=== PATIENT | female | born 1940 | race Caucasian/White ===

== ENCOUNTER 2019-08-12 19:04 | Emergency (ER) | payer MEDICARE ==
[~2019-08-12] VITALS: Ht 165.1 cm; Wt 63.6 kg
[~2019-08-12 19:04] MED LIST: ACET500T68 PO; ATOR10TA60; OMEP40CA45; TRAM50TA
--- NOTE | 2019-08-12 19:26 | PHYS DOC ---
Past Medical History Past Medical History: High Cholesterol, Other Additional Past Medical Histor: CHRONIC RIGHT FOOT PAIN Past Surgical History: Appendectomy, Hysterectomy Smoking Status: Former Smoker Alcohol Use: None Drug Use: None Adult General Chief Complaint Chief Complaint: MECHANICAL FALL HPI HPI Patient is a 78 year old female with history of dyslipidemia and chronic right foot pain resident of [facility] who presents via EMS with complaint of a fall. Patient complaining of frequent fall because of balance problem and states she had a fall today and injured bilateral knees with more pain in left side. Patient denies loss of consciousness and other injuries and rated her pain 5/10. Patient states she usually uses a cane. Review of Systems Review of Systems Constitutional: Denies fever or chills [] Eyes: Denies change in visual acuity, redness, or eye pain [] HENT: Denies nasal congestion or sore throat [] Respiratory: Denies cough or shortness of breath [] Cardiovascular: No additional information not addressed in HPI [] GI: Denies abdominal pain, nausea, vomiting, bloody stools or diarrhea [] : Denies dysuria or hematuria [] Musculoskeletal: Denies back pain, reports joint pain [] Integument: Denies rash or skin lesions [] Neurologic: Denies headache, focal weakness or sensory changes [] Endocrine: Denies polyuria or polydipsia [] All other systems were reviewed and found to be within normal limits, except as documented in this note. Allergies Allergies Allergies Coded Allergies Type Severity Reaction Last Updated Verified Penicillins Allergy Intermediate 10/06/14 Yes Physical Exam Physical Exam Constitutional: Well developed, well nourished, mild distress, non-toxic appearance. [] HENT: Normocephalic, atraumatic. Eyes: PERRLA, EOMI, conjunctiva normal, no discharge. [] Neck: Normal range of motion, no tenderness, supple, no stridor. [] Cardiovascular:Heart rate regular rhythm, no murmur [] Lungs & Thorax: Bilateral breath sounds clear to auscultation [] Abdomen: Bowel sounds normal, soft, no tenderness, no masses, no pulsatile masses. [] Skin: Warm, dry, no erythema, no rash. [] Back: No tenderness, no CVA tenderness. [] Extremities: Left knee feet edema and effusion and area of contusion with painful range of motion, no neurovascular deficit, right knee with several area of contusion with normal range of motion. Neurologic: Alert and oriented X 3, no focal deficits noted. [] Psychologic: Affect normal, judgement normal, mood normal. [] Current Patient Data Vital Signs Vital Signs Date Time Temp Pulse Resp B/P (MAP) Pulse Ox O2 Delivery O2 Flow Rate FiO2 08/12/19 19:04 98.9 78 20 130/58 (82) 100 Room Air 98.9 EKG EKG [] Radiology/Procedures Radiology/Procedures [address] [address] IMAGING REPORT Signed PATIENT: LILIBETH SAUCEDO TACCOUNT: [id number] : 1940 LOCATION: ER AGE: 78 SEX: F EXAM STATUS: PRE ER ORD. PHYSICIAN: OBED BANDA MD REASON: falls PROCEDURE: PELVIS PELVIS DATE: 08/12/2019 7:20 PM INDICATION: Pain, fall COMPARISON: None. FINDINGS: Bones: There is no evidence of acute fracture or dislocation. Right total hip arthroplasty. Joints: The joint spaces are normal. Miscellaneous: None. IMPRESSION: No evidence of acute fracture. Electronically signed by: Caron Gregg MD (08/12/2019 8:29 PM) [id number] DICTATED and SIGNED BY: CARON GREGG MD DATE: 08/12/192028 [address] [address] IMAGING REPORT Signed PATIENT: LILIBETH SAUCEDO TACCOUNT: [id number] : 1940 LOCATION: ER AGE: 78 SEX: F EXAM STATUS: PRE ER ORD. PHYSICIAN: OBED BANDA MD REASON: falls PROCEDURE: KNEE BILAT 4V EXAM: AP, oblique, lateral and tangential patellar views of both knees DATE: 08/12/2019 7:19 PM INDICATION: Fall, bilateral knee pain COMPARISON: No Prior FINDINGS: Diffusely decreased bone mineral density limits evaluation for acute fracture. Within these constraints, no acute fracture or dislocation. Bilateral knee joint osteoarthritis, left greater than right with severe lateral compartment joint space narrowing left knee and mild lateral subluxation of the tibia relative to the femur. Moderate right knee joint osteoarthritis with moderate lateral compartment joint space narrowing right knee. Patellofemoral degenerative changes are also seen with mild lateral patellar tracking. Bilateral chondrocalcinosis. Small left knee joint effusion. No significant right knee joint effusion. IMPRESSION: Within the constraints of osteopenia, no evidence for acute fracture or dislocation. 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 Electronically signed by: Jay Marin MD (08/12/2019 8:27 PM) [facility] DICTATED and SIGNED BY: JAY MARIN MD DATE: 08/12/192026 Course & Med Decision Making Course & Med Decision Making Pertinent Imaging studies reviewed. (See chart for details) I've spoken with the patient and/or caregivers. I've explained the patient's condition, diagnosis and treatment plan based on information available to me at this time. I've answered the patient's and/or caregivers questions and addressed any concerns. The patient and/or caregivers have a good understanding the patient's diagnosis, condition and treatment plan as can be expected at this point. Vital signs have been stabilized. The patient's condition is stable for discharge from the emergency department. The patient will pursue further outpatient evaluation with her primary care provider or other designated consulting physician as outlined in the discharge instructions. Patient and/or caregivers are agreeable to this plan of care and follow-up instructions have been explained in detail. The patient and/or caregivers have received these instructions in written format and expressed understanding of these discharge instructions. The patient and her caregivers are aware that if any significant change in condition or worsening of symptoms should prompt him to immediately return to this of the closest emergency department. If an emergent department is not readily available I would encourage him to call 911. Jazmyn Disclaimer Jazmyn Disclaimer This electronic medical record was generated, in whole or in part, using a voice recognition dictation system. Departure Departure Impression: Primary Impression: Fall at home Additional Impressions: Knee injuries Arthritis Knee effusion, left Contusion Disposition: HOME, SELF-CARE (at 2040) Condition: STABLE Referrals: DUONG NUÑEZ MD (PCP) OFE GRIMES II, MD Patient Instructions: Contusion, Fall Prevention and Home Safety, Knee Effusion Additional Instructions: Apply ice on your knees Use walker Follow-up with on-call orthopedic physician in 2 or 3 days Continue home pain medication Return to ER if not getting better Problem Qualifiers Primary Impression: Fall at home Encounter type: initial encounter Qualified Codes: W19.XXXA - Unspecified fall, initial encounter; Y92.009 - Unspecified place in unspecified non- institutional (private) residence as the place of occurrence of the external cause Additional Impressions: Knee injuries Encounter type: subsequent encounter Laterality: unspecified laterality Qualified Codes: S89.90XD - Unspecified injury of unspecified lower leg, subsequent encounter Contusion Encounter type: sequela Contusion area: knee Laterality: unspecified laterality Qualified Codes: S80.00XS - Contusion of unspecified knee, sequela OBED BANDA MD Aug 12, 2019 19:26
--- NOTE | 2019-08-12 20:30 | RAD ---
EXAM: AP, oblique, lateral and tangential patellar views of both knees DATE: 08/12/2019 7:19 PM INDICATION: Fall, bilateral knee pain COMPARISON: No Prior FINDINGS: Diffusely decreased bone mineral density limits evaluation for acute fracture. Within these constraints, no acute fracture or dislocation. Bilateral knee joint osteoarthritis, left greater than right with severe lateral compartment joint space narrowing left knee and mild lateral subluxation of the tibia relative to the femur. Moderate right knee joint osteoarthritis with moderate lateral compartment joint space narrowing right knee. Patellofemoral degenerative changes are also seen with mild lateral patellar tracking. Bilateral chondrocalcinosis. Small left knee joint effusion. No significant right knee joint effusion. IMPRESSION: Within the constraints of osteopenia, no evidence for acute fracture or dislocation. 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 Electronically signed by: Jay Parnell MD (08/12/2019 8:27 PM) MARYSE
--- NOTE | 2019-08-12 20:32 | RAD ---
PELVIS DATE: 08/12/2019 7:20 PM INDICATION: Pain, fall COMPARISON: None. FINDINGS: Bones: There is no evidence of acute fracture or dislocation. Right total hip arthroplasty. Joints: The joint spaces are normal. Miscellaneous: None. IMPRESSION: No evidence of acute fracture. Electronically signed by: Jones Gregg MD (08/12/2019 8:29 PM) [id number]
[2019-08-12 20:38] VITALS: BP 129/67
== END 2019-08-12 21:30 | disposition home or self-care (01) ==
LOC: ER 19:04
DX: S80.02XA Contusion of left knee, initial encounter (principal); S80.01XA Contusion of right knee, initial encounter; M25.462 Effusion, left knee; G89.29 Other chronic pain; R10.2 Pelvic and perineal pain; E78.00 Pure hypercholesterolemia, unspecified; Z90.89 Acquired absence of other organs; Z90.710 Acquired absence of both cervix and uterus; Z87.891 Personal history of nicotine dependence; Z88.0 Allergy status to penicillin; W18.39XA Other fall on same level, initial encounter; Y93.89 Activity, other specified; Y92.89 Other specified places as the place of occurrence of the external cause; Y99.8 Other external cause status
CPT/HCPCS: 72170; 73564; 99284